=== PATIENT | male | born 1945 | race Caucasian/White ===

== ENCOUNTER 2025-07-24 18:36 | Emergency (ER) | payer MEDICARE, OTHER, SELFPAY ==
[2025-07-24 18:39] VITALS: BP 106/78; BMI 23.3
[2025-07-24 19:00] VITALS: BP 120/87
--- NOTE | 2025-07-24 19:25 | ED.MUSCINJ ---
HPI-Injury
General
Chief Complaint: Fall
Source: patient
Exam Limitations: none
Time Seen by Provider: 07/24/25 19:18
History of Present Illness-Injury
Initial Injury comments:
80-year-old male not anticoagulated with history of dementia presents after fall backwards. He complains of headache neck pain lower back pain left thigh and left ankle pain. No loss of consciousness. He states he was not dizzy afterwards. He
states he was ambulatory fall. No other complaints at this time
Phy Exam
Physical Exam
Physical Exam:
General: Well-appearing male no acute respiratory distress
HEENT normal cephalic no scalp abrasion or hematoma pupils equal round reactive to light
Heart: Regular rate and rhythm
Lungs: Clear no wheeze
Musculoskeletal exam: Mild diffuse tenderness in the paraspinous area of the cervical spine. Left ankle slightly swollen but nontender. Left posterior thigh tender there is mild diffuse tenderness about the lumbar spine as well no deformities.
Neurologic exam: Alert and oriented to person and place conversing appropriately good muscle tone
Injury Course
Orders/Labs/Results
Orders:
Orders
07/24/25 18:43
EKG [Electrocardiogram (*1)] Urgent
Reason for Study: Tachycardia
EKG- Treatment ONCE
07/24/25 19:25
CT Cervical Spine W/o Iv Contr Urgent
Comment:
Reason For Exam: fall
CT Head W/o Iv Contrast Urgent
Comment:
Reason For Exam: fall
CR Ankle - Left Min 3 Views Urgent
Comment:
Reason For Exam: fall
CR Femur - Left Min 2 Vw Urgent
Comment:
Reason For Exam: fall
CR Lumbar Spine 2 Or 3 Views Urgent
Comment:
Reason For Exam: fall
MDM/Problems Addressed
Differential Diagnosis Includes:
Patient with fall head strike noted. CT of head and cervical spine ordered to evaluate for intracranial hemorrhage skull fracture or neck fracture. Order x-rays of the back left femur and left ankle as well
EKG shows sinus rhythm with a right bundle branch block with a rate of 79 no ischemic changes
*Pulse Oximetry
SaO2: 99
Oxygen Mode of Delivery: Room air
Patient hypoxic: no
*Critical Care Note
Total Time (30-74mins, 75-104mins- exclusive of procedures): Not Applicable
Update Note
Update Note:
CT of head and cervical spine x-ray left femur left ankle and lumbar spine all negative for acute traumatic injury. Patient has been ambulatory here. No indication for admission. Stable for discharge
ED Attending Note
-
Portions of this chart may have been created with voice recognition software.� Occasional wrong word or��sound alike� substitutions may have occurred due to the inherent limitations of voice recognition software.
Discharge Plan
Departure
Patient Disposition: Home (Routine Discharge)
Date of Disposition: 07/25/25
Time of Disposition: 00:20
Patient with high blood pressure during this ER visit?: No
Discharge Problem:
Fall
Instructions: Preventing falls in adults
Referrals:
Mayela Billings DO [Family Provider, Family Practice]
Activity Restrictions/Additional Instructions:
Mr. Prince was evaluated here. There is no traumatic injury noted on the studies. Return here if needed
Interventions
Interventions:
*General Assessment Last Done: 07/24/25 18:39
*Neglect/Abuse Screening Last Done: 07/24/25 18:39
*ED COVID-19 Vaccine History Last Done: 07/24/25 18:39
*ED Influenza Vaccine History Last Done: 07/24/25 18:39
[facility] Risk Assessment Tool Last Done: 07/24/25 18:47
*Risk Screen - Suicide (C-SSRS) Last Done: 07/24/25 18:39
ED-Musculoskeletal Assessment Last Done: 07/24/25 18:45
ED- Neurological Assessment Last Done: 07/24/25 18:45
ED-Skin Assessment Last Done: 07/24/25 18:46
Discharge Date and Time
Print Language: [place]
[2025-07-24 20:00] VITALS: BP 109/63
[2025-07-24 21:14] VITALS: BP 149/98
== END 2025-07-25 01:13 | disposition home or self-care (01) ==
LOC: EMR 18:36
PROVIDERS: EMERGENCY PHYSICIAN Emergency Medicine; FAMILY PHYSICIAN Family Medicine
DX: R51.9 Headache, unspecified (principal); M54.2 Cervicalgia; M79.652 Pain in left thigh; M54.50 Low back pain, unspecified; M25.572 Pain in left ankle and joints of left foot; W19.XXXA Unspecified fall, initial encounter; F03.90 Unspecified dementia, unspecified severity, without behavioral disturbance, psychotic disturbance, mood disturbance, and anxiety
CPT/HCPCS: 99284; 70450; 72100; 72125; 73552; 73610; 93005

== ENCOUNTER 2025-08-03 08:23 | Emergency (ER) | payer MEDICARE, OTHER, SELFPAY ==
[2025-08-03 08:29] VITALS: BP 130/73
--- NOTE | 2025-08-03 09:21 | ED.GENMED ---
History of Present Illness
General
Chief Complaint: Fall
Source: patient, ambulance crew and [facility]
Exam Limitations: dementia
Time Seen by Provider: 08/03/25 09:01
Nursing documentation reviewed up to this point in time: agreed with
History of Present Illness
History of Present Illness:
80-year-old male with a past medical history as noted significant for dementia who presents to the ER for evaluation after a fall. He was apparently found next to his bed by [facility] staff this morning, fall was not witnessed. He cannot
meaningfully participate in history due to his history of dementia. I spoke to the [facility]iary staff directly to obtain collateral history: He was checked at 6:30 AM, found next to his bed at around 7:30 AM so no longer than an hour sitting on the
ground next to his bed. He was sent in because he had a hematoma to the forehead. He is not on anticoagulation per nursing of staff. They report that he was at his baseline mental status and not confused compared to normal.
Review of Systems
Review of Systems
Unable to obtain full review of systems at this time due to: dementia
All Other Systems: Not applicable
Phy Exam
Physical Exam
Physical Exam:
General: Laying in bed resting comfortably, easily arousable, answering questions and following commands but only oriented x 1
Head: Normocephalic, left frontal hematoma
Eyes: Conjunctiva normal, EOMI, pupils equal round and reactive to light bilaterally
Throat: Airway intact, handling secretions
Neck: Trachea midline, no cervical spine tenderness, good range of motion without discomfort
Back: No signs of trauma to the back or flank and no tenderness to the thoracic or lumbar spine
Lungs: Clear to auscultation bilaterally, no wheezing, rales, rhonchi
Heart: Regular rate; no chest wall tenderness
Abd: Soft, non distended, nontender
Neuro: Grossly intact
Skin: Left forehead/frontal hematoma, minor abrasion of the left knee, no other signs of acute trauma
Extremities: Minor abrasion to the left knee but no reproducible tenderness in extremities, allows for full range of motion in all extremities without pain; extremities are warm well-perfused
Scores
Heart Failure Risk
Heart Failure Risk Score: Not Applicable
Heart Score for Chest Pain Patients
STEMI patient?: Not applicable
Withdrawal Assessment of Alcohol
Withdrawal Assessment Completed?: Not applicable
Course
Orders/Labs/Results
Orders:
Orders
08/03/25 08:57
CT Cervical Spine W/o Iv Contr Urgent
Comment:
Reason For Exam: fall, left frontal head strike
CT Head W/o Iv Contrast Urgent
Comment:
Reason For Exam: fall, left frontal head strike
Vital Signs
Initial and Last Documented VS:
Initial Vital Signs
Temp Pulse Resp BP Pulse Ox
36.6 C 80 18 130/73 100
08/03/25 08:29 08/03/25 08:29 08/03/25 08:29 08/03/25 08:29 08/03/25 08:29
Last Documented Vital Signs
Temp Pulse Resp BP Pulse Ox
36.6 C 80 18 130/73 100
08/03/25 08:29 08/03/25 08:29 08/03/25 08:29 08/03/25 08:29 08/03/25 09:27
MDM/Problems Addressed
Differential Diagnosis Includes:
Traumatic head injury�forehead hematoma, intracranial pathology such as bleed, concussion
MDM/Problems Addressed:
80-year-old male presents after a fall with head strike. Not on blood thinners. At his baseline mentation. Vitals and exam as above�no other serious injuries noted. Given his age we will check CT of the head and cervical spine. If negative can
be discharged back to [facility].
CT head and cervical spine negative for any acute abnormality. Incidental findings noted on report including thyroid nodule�provided copy of report to follow-up with PCP. Stable for discharge back to [facility].
Chronic conditions affecting care:
Dementia
*Radiology
Radiology exam reviewed: radiology read reviewed
*Pulse Oximetry
SaO2: 100
Oxygen Mode of Delivery: Room air
Patient hypoxic: no (100%)
*Critical Care Note
Total Time (30-74mins, 75-104mins- exclusive of procedures): Not Applicable
Data Reviewed
Source: patient, ambulance crew, penitentiary and penitentiary records
Patient Management
Discussion with other providers: senior care staff (Discussed directly with [facility] staff)
ED Attending Note
-
Portions of this chart may have been created with voice recognition software.� Occasional wrong word or��sound alike� substitutions may have occurred due to the inherent limitations of voice recognition software.
Discharge Plan
Departure
Patient Disposition: Home (Routine Discharge)
Date of Disposition: 08/03/25
Time of Disposition: 10:24
Patient with high blood pressure during this ER visit?: No
Discharge Problem:
Hematoma of forehead
Instructions: Preventing falls in adults
Referrals:
Mayela Billings DO [Family Provider, Family Practice] - Follow up in 1 week
Activity Restrictions/Additional Instructions:
There were some incidental findings on CT that should be followed up with primary care physician including a small thyroid nodule. You should see your primary doctor in a week to review these results.
Thank you for visiting the Emergency Department at [facility].
1. Please schedule a follow up appointment as directed. Call first thing tomorrow morning to make an appointment.
2. If indicated, please take your medications as instructed and indicated on discharge paperwork.
3. If any of your symptoms do not improve, or persist, or become more severe within 6-12 hours, please return to the emergency department for further care.
4. Please return to the emergency department if you develop a headache, neck pain/stiffness, fever greater than 100.4F, chest pain, shortness of breath, persistent nausea, vomiting, slurred speech, difficulty walking, numbness/tingling, weakness,
signs of infection or any other symptoms that are worrisome to you.
Please call [phone] if you have any questions.
Interventions
Interventions:
*General Assessment Last Done: 08/03/25 08:29
*Neglect/Abuse Screening Last Done: 08/03/25 08:29
ED-Musculoskeletal Assessment Last Done: 08/03/25 08:33
ED- Neurological Assessment Last Done: 08/03/25 08:33
ED-Skin Assessment Last Done: 08/03/25 08:33
Discharge Date and Time
Print Language: [place]
[2025-08-03 12:02] VITALS: BP 138/75
== END 2025-08-03 12:04 | disposition home or self-care (01) ==
LOC: EMR 08:23
PROVIDERS: EMERGENCY PHYSICIAN Emergency Medicine; FAMILY PHYSICIAN Family Medicine
DX: S00.83XA Contusion of other part of head, initial encounter (principal); W19.XXXA Unspecified fall, initial encounter; F03.90 Unspecified dementia, unspecified severity, without behavioral disturbance, psychotic disturbance, mood disturbance, and anxiety
CPT/HCPCS: 99284; 70450; 72125